=== PATIENT | male | born 1940 | race Caucasian/White ===

== ENCOUNTER → 2017-10-21 | Outpatient (CLI) | payer MEDICARE ==
[~2017-10-21] MED LIST: ALPR.25; ALPR.25 PO; ASCO500 PO; ASPI325; ASPI325EC PO; ASPI81EC PO; ATOR10; BACPOLTO30 TOP; BUME1 PO; BUME2 PO; BUMEX PO; CARV6.25 PO; CITA20 PO; CLOP75 PO; CYAN1000 PO; DIGO.125; DIGO.25; DIGO.25 PO; DILT60; DIPATR PO; ESCI10 PO; EZET10 PO; FERR325 PO; FLUO.05TO; FLUO.05TO TOP; FLUO60T TOP; FLUV80CR PO; GLIM2 PO; HYDACE5; HYDACE5 PO; IBUP600 PO; Keflex500 MG PO; LANS30EC PO; LATA.005SO BOTHEYES; LEVO750; LISI5; LISI5 PO; LIVALO PO; MAGCHL64ER PO; METF500 PO; METO25ER; METO50; METO50 PO; Micro-K10 MEQ PO; NAPR500 PO; NITR.4SL SL; NITR.6SL SL; Norco 5-325 Ta1 EACH PO; OMEP20ER; POTASSIUM PO; POTCHL10ER PO; TAMS.4ER; TAMS.4ER PO; TOPROL; TRIA50; VALS80; WARF1; ZENPEP DR 5,001 EACH PO; Zofran Odt4 MG SL; [UNRECOGNIZED DRUG - REMARK] PO
== END ==
LOC: LAB SHORT 12:47 → LAB EV 12:47
DX: I87.2 Venous insufficiency (chronic) (peripheral) (principal)
CPT/HCPCS: 87070; 87075; 87077; 87147; 87186; 87205

== ENCOUNTER 2018-08-02 20:46 | Inpatient (IN) | payer MEDICARE ==
[~2018-08-02] VITALS: Ht 170.2 cm; Wt 93.4 kg
[~2018-08-02 20:46] MED LIST changes: -CEPACOL SORE T1 EACH MM; -HYDR-86 PO; -RISP.25 PO; -Xalatan2.5 ML BOTHEYES
[2018-08-02 23:35] LABS: Source, Urine Clean Catch
[2018-08-02 23:38] LABS: Appearance, Urine Clear (Clear); Bilirubin, Urine Neg (Neg); Blood, Urine Neg (Neg); Color, Urine Yellow (P-Yellow); Glucose Qualitative, Urine Neg (Neg); Ketones, Urine Neg (Neg); Leukocyte Esterase, Urine Neg (Neg); Nitrite, Urine Neg (Neg); Protein, Urine 1+ (Neg); Specific Gravity, Urine 1.015 (1.003-1.022); Urobilinogen, Urine NORM (Normal)
[2018-08-02 23:55] LABS: Influenza A Negative (NEGATIVE); Influenza B Negative (NEGATIVE)
[2018-08-03 00:46] LABS: BASOPHILS ABSOLUTE AUTO 0.02 K/mm3 (0.00-0.23); BASOPHILS PERCENT AUTO 0 % (0-2); EOSINOPHILS ABSOLUTE AUTO 0.05 K/mm3 (0.00-0.68); EOSINOPHILS PERCENT AUTO 1 % (0-6); Hematocrit 39.1 % (37.0-53.0); Hemoglobin 12.8 g/dL (13.5-17.5); IMMATURE GRAN ABSOLUTE AUTO 0.04 K/mm3 (0.00-0.10); IMMATURE GRAN PERCENT AUTO 0 % (0-1); LYMPHOCYTES ABSOLUTE AUTO 1.15 K/mm3 (0.84-5.20); LYMPHOCYTES PERCENT AUTO 11 % (21-46); MONOCYTES ABSOLUTE AUTO 1.56 K/mm3 (0.16-1.47); MONOCYTES PERCENT AUTO 15 % (4-13); Mean Corpuscular HGB 28.4 pg (26.0-34.0); Mean Corpuscular HGB Conc 32.7 g/dL (31.5-36.5); Mean Corpuscular Volume 87 fL (80-100); NEUTROPHILS ABSOLUTE AUTO 7.89 K/mm3 (1.96-9.15); NEUTROPHILS PERCENT AUTO 74 % (41-73); Platelet Count 94 K/mm3 (150-400); RDW Standard Deviation 44.8 fL (35.1-46.3); Red Blood Cell Count 4.51 M/mm3 (4.30-5.90); White Blood Cell Count 10.71 K/mm3 (4.00-11.30)
[2018-08-03 00:47] LABS: Mean Platelet Volume 13.9 fL (9.1-12.4)
[2018-08-03 00:57] LABS: Bun/Creatinine Ratio 27.8 (12.0-20.0); Calcium, Blood 8.4 mg/dL (8.5-10.1); Creatinine, Blood 3.06 mg/dL (0.60-1.20); Potassium, Blood 5.1 mmol/L (3.5-5.5)
[2018-08-03 01:11] LABS: Digoxin (Lanoxin) 1.11 ug/mL (0.80-2.00)
[2018-08-03 04:40] LABS: Adenovirus F 40/41 Not Detected (NOT DETECT); Astrovirus Not Detected (NOT DETECT); Campylobacter Sp Not Detected (NOT DETECT); Cryptosporidium Not Detected (NOT DETECT); Cyclospora Cayetanensis Not Detected (NOT DETECT); E. Coli O157 Not Detected (NOT DETECT); Entamoeba Histolytica Not Detected (NOT DETECT); Enteroaggregative E. coli-EAEC Not Detected (NOT DETECT); Enteropathogenic E. coli-EPEC Not Detected (NOT DETECT); Enterotoxigenic E. coli-ETEC Not Detected (NOT DETECT); Giardia Lamblia Not Detected (NOT DETECT); Norovirus GI/GII Detected (NOT DETECT); Plesiomonas Shigelloides Not Detected (NOT DETECT); Rotavirus A Not Detected (NOT DETECT); Salmonella Sp Not Detected (NOT DETECT); Sapovirus Not Detected (NOT DETECT); Shiga Toxin-prod E. coli-STEC Not Detected (NOT DETECT); Shigella/Enteroin E. coli-EIEC Not Detected (NOT DETECT); Vibrio Cholerae Not Detected (NOT DETECT); Vibrio Sp Not Detected (NOT DETECT); Yersinia Enterocolitica Not Detected (NOT DETECT)
--- NOTE | 2018-08-03 11:30 | NUR ---
PT ARRIVED TO PCU 11 VIA GURNEY REPORT OBTAINED FROM ED NURSE, PT ABLE TO STAND AND TRANSFER TO BED HIMSELF, STEADY ON HIS FEET, BUT WEAK, A/OX3, PLEASANT AND COOPERATIVE WITH CARE, FOLLOWS COMMANDS WELL, DENIES PAIN OR N/V AT THIS TIME, LUNGS ARE CLEAR DIM IN BASES, RESP EVEN AND UNLABORED, NO COUGH NOTED, HRIRR, TELE IN PLACE RUNNING AFIB PER MONITOR, SEE STRIP, 1+ EDEMA NOTED TO B/L LE, PPP+1, CAP REFILL < 3 SEC, VS STABLE, AFEBRILE, IV SITE TO RAC SITE IS CLEAR AND PATENT, BTX4, ABD FLAT SOFT NONTENDER, VOIDS WITHOUT DIFF, HAS AN ILEOSTOMY TO RIGHT ABD, SKIN C/W/D, B/L LE ARE DISCOLORED, CASTILLO PANIAGUA, CALL LIGHT IN REACH, ORIENTED TO ROOM LAYOUT AND CALL SYSTEM.
[2018-08-03] MEDS ORDERED: Xalatan2.5 ML BOTHEYES (11:39)
[2018-08-03] MEDS ORDERED: HYDR-86 PO (11:41)
[2018-08-03] MEDS ORDERED: RISP.25 PO (11:42)
--- NOTE | 2018-08-03 18:47 | NUR ---
PT UP VOIDING VIA URINAL FREQUENTLY, STATES HE'S HAD A HARD TIME VOIDING SINCE HIS SURGERY. NO OTHER CHANGES, STATES HE FEELS OK. CALL LIGHT IN REACH.
--- NOTE | 2018-08-03 21:08 | NUR ---
PM NOTE. ASSUMED CARE OF PT APROX 1900, PT IS A&O AND IND IN THE ROOM. PT WAS ADMITTED DUE TO ACUTE RENAL FAILURE, PT ALSO IS NORO VIRUS POSITIVE AND HAS HAD N/V FOR SEVERAL DAYS PRIOR TO BEING ADMITTED. TELE INTACT, AFIB AT 110, PT'S BP 136/69. 1+ EDEMA NOTED TO THE PT'S BLE. L/S CLEAR T/O. ABD IS MOD DISTENDED, FIRM AND TENDER TO PALP. PT COMPLAINS OF SEVERE N/V, PT HAS REFUSED TO USE THE EMISIS BAGS IN ORDER TO MEASURE AMOUNT. PT HAS BEEN VOIDING VERY FREQUENTLY AND VERY MINIMAL AMOUNTS 25MLS AT A TIME TO DRIBBLES, BLADDER SCAN WAS DONE, NO AMOUNT OF FLUID IN THE ABD WAS ABLE TO BE FOUND. CALL LIGHT IN REACH, BED IS LOCKED AND LOW WILL CONTINUE TO MONITOR.
--- NOTE | 2018-08-04 03:22 | NUR ---
PT UPDATE... THIS RN ENTERED THE PT'S ROOM, PT STATED THERE WERE "ANTS ON THE FLOOR IN THE BATHROOM." PT WAS IN THE BATHROOM THEN WENT DOWN ON THE FLOOR ON HIS HANDS AND KNEES, THIS RN ENTERED THE BATHROOM AND SAW NO ANTS OR BUGS ON THE GROUND, PT GOT UP SET AND SAID "HOW CAN YOU NOT SEE THEM! THEY ARE EVERYWHERE!" PT THEN TOOK HIS FINGER AND SMASHED IT ON THE GROUND, LOOKED AT THE TIP OF HIS FINGER LIKE SOMETHING WAS THERE AND STATED "SEE THERE IT IS!" AND THEN FLICKED HIS FINGER AT THE TOILET AND SAID "THERE, ITS GONE NOW." PT WAS UPSET WITH THIS RN WHEN IT WAS STATED TO THE PT THAT THERE WERE NO BUGS OR ANTS IN THE BATHROOM. PT CONTINUES TO VOID APROX EVERY 5-10 MINS VERY MINIMAL AMOUNTS AT A TIME, PT STATES THAT "IT HURTS MY BLADDER TOO MUCH TO LAY DOWN FOR TO LONG." PT SAT ON THE EDGE OF THE BED FOR 8 MINS AND WAS UNABLE TO VOID MORE THAN A FEW DRIBBLES. BLADDER SCAN SHOWS NO FLUID FOUND IN THE ABD AREA AT ALL.
[2018-08-04 04:13] LABS: Hematocrit 38.9 % (37.0-53.0); Hemoglobin 12.5 g/dL (13.5-17.5); Mean Corpuscular HGB 28.2 pg (26.0-34.0); Mean Corpuscular HGB Conc 32.1 g/dL (31.5-36.5); Mean Corpuscular Volume 88 fL (80-100); Platelet Count 101 K/mm3 (150-400); RDW Coefficient Variation 14.2 % (11.7-14.2); RDW Standard Deviation 45.3 fL (35.1-46.3); Red Blood Cell Count 4.44 M/mm3 (4.30-5.90); White Blood Cell Count 10.92 K/mm3 (4.00-11.30)
[2018-08-04 04:14] LABS: Mean Platelet Volume 14.2 fL (9.1-12.4)
[2018-08-04 04:35] LABS: Bun/Creatinine Ratio 39.5 (12.0-20.0); Calcium, Blood 8.7 mg/dL (8.5-10.1); Creatinine, Blood 1.57 mg/dL (0.60-1.20); Potassium, Blood 5.2 mmol/L (3.5-5.5)
--- NOTE | 2018-08-04 04:49 | NUR ---
PT UPDATE... BLADDER SCANNER BATTERY WAS LOW, BATTERY WAS CHANGED AND BLADDER SCAN WAS PERFORMED ON THIS PT. PVR WAS 768, PROVIDER WAS CALLED AND ORDERS FOR RENTERIA OBTAINED.
--- NOTE | 2018-08-04 06:40 | NUR ---
SHIFT SUMMARY. RENTERIA WAS PLACED DUE TO SEVERE URINARY RETENTION AND FREQUENCY WITH MINIMAL OUTPUT. PT WAS ABLE TO REST AFTER RENTERIA PLACEMENT. PT STILL IS SLIGHTLY CONFUSED BUT NOT HALLUCINATING LIKE BEFORE. BED ALARM IS ON DUE TO PT'S CONFUSION. PT'S VS HAVE BEEN STABLE T/O SHIFT, PT'S COMPLAINS OF PAIN HAVE STOPPED SINCE RENTERIA PLACEMENT. CALL LIGHT IN REACH, BED IS LOCKED AND LOW WITH BED ALARM ON. WILL CONTINUE TO MONITOR UNTIL REPORT IS GIVEN TO ONCOMING RN.
--- NOTE | 2018-08-04 08:00 | NUR ---
PT SITTING UP IN CHAIR STATES HE HAD A PRETTY GOOD NIGHT LAST NIGHT, DID RECIEVE A RENTERIA CATH HE WAS RETAINING, BLADDER SCAN SHOWED OVER 800 PER REPORT, PT A/OX3 PLEASANT AND COOPERATIVE WITH CARE, FOLLOWS COMMANDS WELL, LUNGS ARE CLEAR DIM IN BASES, RESP EVEN AND UNLABORED, NO COUGH NOTED, HRIRR TELE IS IN PLACE RUNNING SR PER MONITOR, SEE STRIP, 2+ EDEMA NOTED TO B/L LE, PPP+1, CAP REFILL <3SEC, VS STABLE, AFEBRILE, IV SITE IS CLEAR AND PATENT TO RAC, INFUSING NS AT 125MLS/HR, BTX4, ABD ROUND SOFT NONTENDER, ILEOSTOMY NOTED TO RIGHT SIDE OF ABD, RENTERIA CATH DRAINIG CLEAR YOU URINE, SKIN HAS DISCOLORED B/L ARCELIA NAVARRO, UP AD BALTA IN ROOM, PELA CALL LIGHT IN REACH.
--- NOTE | 2018-08-04 15:50 | NUR ---
PT WAS CHANGED TO MEDICAL STATUS, REPORT TO SARAH PARIS. WAS TAKEN TO MEDICAL VIA WHEELCHAIR WITH REAMING MACHINE TENDER IN ATTENDENCE, ALL BELONGINGS WITH PT.
--- NOTE | 2018-08-04 17:30 | NUR ---
SPOKE TO DR HARPER- PT HAS A DC RENTERIA ORDER, PER REPORT FROM SHADOW GRAPH WEIGHT OPERATORWELLINGTON CARRINGTON IT WAS PLACED FOR RETENTION, DR TOLD BY FAMILY IT WAS FOR FREQUENCY. SPOKE TO DR HARPER, JULIANO TO LEAVE RENTERIA START BLADDER TRAINING KRISTY MCGRATH RENTERIA IN THE MORNING, IF PT STILL UNABLE TO VOID MAY NEED TO GO HOME WITH ONE IN PLACE.
--- NOTE | 2018-08-04 18:30 | NUR ---
SHIFT MARQUISE- PT TRANSFERED FROM PCU TO MEDICAL FLOOR. PT HAS ILLIOSTOMY STATED HE MANAGES IT HIMSELF DOES NOT WANT STAFF TO DO IT. PT HAS A RENTERIA THAT WAS PLACED LAST NIGHT FOR RETENTION, ORDERED BLADDER TRAINING TO START TONIGHT AND DC RENTERIA TOMORROW MORNING. NO CURRENT C/O PAIN. SITTING UP IN THE CHAIR WITH THE CALL LIGHT IN REACH. PT ALERT AND ORIENTED SBA FOR TRANSFERS.
--- NOTE | 2018-08-04 23:36 | NUR ---
08/04/18 2330 ASSISTED TO BATHROOM TO EMPTY ILEOSTOMY BAG AND RENTERIA UNCLAMPED AND EMPTIED. ASSISTED TO BED BY TWO NURSES. AND ALL NEEDED POSESSIONS WITHIN REACH. NO C/O DISCOMFORT AT THIS TIME.
[2018-08-05 05:38] LABS: Anion Gap 4 mmol/L (6-16); Blood Urea Nitrogen 36 mg/dL (8-24); CO2, Blood 26 mmol/L (21-32); Calcium, Blood 8.6 mg/dL (8.5-10.1); Chloride, Blood 110 mmol/L (98-108); Glomerular Filtration Rate >60 (60-); Glucose, Blood 104 mg/dL (70-99); Potassium, Blood 4.6 mmol/L (3.5-5.5); Sodium, Blood 140 mmol/L (136-145)
--- NOTE | 2018-08-05 06:16 | NUR ---
08/05/18 0610 UNCLAMPED RENTERIA PER PT FEELING"FULL". RENTERIA HTFOSE=769 ML. ILEOSTOMY BAG EMPTIED WELL. MEDICATED FOR MILD HEADACHE PER AUG. VITALS STABLE AND SLEPT WELL.
--- NOTE | 2018-08-05 12:05 | NUR ---
CALLED DR NG- PT RENTERIA REMOVED AFTER BLADDER TRAINING T/O THE NIGHT. PT HAS ATTEMPTED TO VOID 3 TIMES BLADDER SCAN SHOWS 613ML AT THIS TIME, PLAN IS FOR PT TO DC HOME. WAITING FOR A CALL BACK.
--- NOTE | 2018-08-05 17:53 | NUR ---
PT UNABLE TO VOID ON HIS OWN- STRAIGHT CATH DONE AFTER BLADDER SCAN SHOWED 613ML 500ML OUT WITH STRAIGHT CATH. PT RECIEVED FLOMAX THIS AFTERNOON DR ORDERED ANOTHER DOSE FOR THIS EVENING. ATTEMPTING BLADDER TRAINING PT AMBULATING IN THE ROOM, NO C/O PAIN. IV INFILTRATED, NEW ORDER FOR NO IV ACCESS NEEDED, ORDER RECIEVED TO LA TELE. PT DISCHARGE HELD UNTIL TOMORROW IF PT IS ABLE TO VOID ON HIS OWN.
--- NOTE | 2018-08-05 18:00 | NUR ---
SHIFT SUMMARY- PT HAS STILL BEEN UNABLE TO VOID T/O THE DAY, SECOND DOSE OF FLOMAX ORDERED FOR BEDTIME TONIGHT. PLAN TO CONTINUE WITH DISCHARGE TOMORROW IF PT IS ABLE TO VOID ON HIS OWN. BLADDER SCAN PRN AND STRAIGHT CATH PRN ORDERED. PT ALERT AND ORIENTED AND INDEPENDENT IN THE ROOM. STAFF TO PERSUADE HIM TO ATTEMPT TO VOID AT REGULAR INTERVALS
--- NOTE | 2018-08-05 23:06 | NUR ---
08/05/182219 PT VOIDED 30 ML AT 2024. BLADDER SCAN AT 2100 = 331ML. VOIDED AGAIN [address] CATH = 480 ML AT 2209. PT STATES A HISTORY OF FREQUENT SMALL VOIDINGS.
--- NOTE | 2018-08-06 04:31 | NUR ---
08/06/18 0415 Voided 5 ml. BLADDER SCAN = 114 ML. ABDOMEN NOT DISTENDED. HOPING TO GO BACK TO SLEEP. VITALS STABLE.
[2018-08-06 06:12] LABS: Anion Gap 7 mmol/L (6-16); Blood Urea Nitrogen 25 mg/dL (8-24); Bun/Creatinine Ratio 26.9 (12.0-20.0); CO2, Blood 25 mmol/L (21-32); Calcium, Blood 8.3 mg/dL (8.5-10.1); Chloride, Blood 107 mmol/L (98-108); Creatinine, Blood 0.93 mg/dL (0.60-1.20); Glomerular Filtration Rate >60 (60-); Glucose, Blood 132 mg/dL (70-99); Potassium, Blood 4.4 mmol/L (3.5-5.5); Sodium, Blood 139 mmol/L (136-145)
--- NOTE | 2018-08-06 13:57 | NUR ---
HE HAS VOIDED 50 ML INCREMENTS. BLADDER SCAN SHOWED 747 MLS JUST BEFORE NOON. I ST CATHED HIM AT 1215 FOR 700 MLS. HE TOLERATED IT WELL. HE DOESN'T SOUND WILLING TO HAVE A RENTERIA OR TO ST CATH HIMSELF AT HOME. HE IS COUNTING ON THE FLOMAX TO SOLVE HIS RETENTION PROBLEM. HE HAS SCABS OLD AND NEW ON HIS BUTTOCKS AREA. HE SAYS THOSE COME AND GO. THEY HURT SOME. HIS ILEOSTOMY DRAINS GREEN WATERY OUTPUT. HE EMPTIES HIS BAG AND DENIES ANY PROBLEM WITH IT. HE IS IN CONTACT ISOLATION FOR NORO VIRUS FOUND IN THE STOOL. CBG'S STABLE. VSS.
--- NOTE | 2018-08-06 15:21 | NUR ---
HE HAS BEEN SITTING UP IN THE CHAIR THIS AFTERNOON AND HAS WASHED UP SOME IN THE BATHROOM. NO COMPLAINTS.
--- NOTE | 2018-08-06 18:28 | NUR ---
WILL BLADDER SCAN HIM AGAIN TO SEE IF HE NEEDS A SECOND ST CATH THIS SHIFT. HE HAS NO COMPLAINTS EXCEPT HE CAN'T VOID AND HE IS BORED. HIS JUST CALLED TO DAY SHE CANNOT DRIVE IN THIS WEATHER.
--- NOTE | 2018-08-06 19:27 | NUR ---
08/06/181919 Voided only 10 ml. Encouraged oral intake and to try to void again in an hour or so. Sitting up in chair.
--- NOTE | 2018-08-06 22:29 | NUR ---
08/06/18 2220 VOIDED ONLY 30 ML AND C/O LOWER ABDOMINAL AND BACK PAIN. BLADDER SCAN = [address] CATH = 680 ML CLEAR YOU URINE. PT STATES BACK/ABDOMEN DISCOMFORT "almost gone". TALKED WITH HIM ABOUT POSSIBLY NEEDING A RENTERIA CATH FOR HOME BUT STATES HE WOULD PREFER NOT TO HAVE ONE AT HOME.
--- NOTE | 2018-08-07 02:26 | NUR ---
08/07/18 0210 VOIDED 10 ML OF PINK URINE. ENCOURAGED ORAL INTAKE AND ASSURED PT THAT IT WAS PROBABLY FROM FREQUENT ST CATHS. ALSO C/O SLIGHT SORE THROAT. COLD DIET SODA GIVEN.
--- NOTE | 2018-08-07 03:48 | NUR ---
08/07/18 0340 PT UNABLE TO SLEEP AND HAS BEEN FRUSTRATED AND ANXIOUS THIS SHIFT ABOUT NOT BEING ABLE TO VOID ADEQUATELY AND NEEDING TO BE ST CATHED REGULARLY. ALSO C/O SORE THROAT. CREDIT COLLECTIONS ANALYSTSHAHZAD NOTIFIED OF [facility]. CALLED FOR MEDS. SEE MAR FOR MEDS GIVEN. WILL MONITOR.
--- NOTE | 2018-08-07 06:16 | NUR ---
08/07/18 0530 SEE PREVIOUS NOTES. SLEEPING WELL NOW IN CHAIR.
[2018-08-07] MEDS ORDERED: CEPACOL SORE T1 EACH MM (09:48)
--- NOTE | 2018-08-07 11:03 | NUR ---
DISCHARGE/HANDOFF NOTE RECEIVED HANDOFF FROM NURSE DIANE. PT HAD NO IV. EXPLAINED DISCHARGE INSTRUCTIONS. PROVIDED HARDCOPY AND VERBAL INSTRUCTIONS FOR DISCHARGE. PERSONAL POSSESSIONS BAGGED FOR PT. PT DRESSED IN PERSONAL CLOTHES. PT AWAITING RIDE. PT HAD NO FURTHER QUESTIONS
--- NOTE | 2018-08-07 11:52 | NUR ---
PT DISCHARGE PT DISCHARGED, TRANSPORTED VIA WHEELCHAIR W/ ASSISTANCE FROM PROCESS MACHINE OPERATOR. WNL.
== END 2018-08-07 11:50 | disposition home or self-care (01) | DRG 391 ==
LOC: ER 20:46 → ERHOLD 08-03 01:44 → PCU 08-03 10:13 → MEDS 08-04 15:25 → EDPENDDIS 08-05 10:30 → ENPENDDIS 08-05 10:30 → MEDS 08-06 21:36
PROVIDERS: Emergency Medicine; Hospitalist; Internal Medicine; ADMIT Family Medicine
DX: A08.11 Acute gastroenteropathy due to Norwalk agent (principal); N17.0 Acute kidney failure with tubular necrosis; E87.1 Hypo-osmolality and hyponatremia; N40.1 Benign prostatic hyperplasia with lower urinary tract symptoms; R33.8 Other retention of urine; Z93.2 Ileostomy status; E86.0 Dehydration; E11.9 Type 2 diabetes mellitus without complications; I48.91 Unspecified atrial fibrillation; D69.6 Thrombocytopenia, unspecified; I95.9 Hypotension, unspecified; E86.1 Hypovolemia; I10 Essential (primary) hypertension; I25.10 Atherosclerotic heart disease of native coronary artery without angina pectoris; M79.7 Fibromyalgia; Z88.5 Allergy status to narcotic agent; Z88.8 Allergy status to other drugs, medicaments and biological substances; Z79.84 Long term (current) use of oral hypoglycemic drugs; Z79.82 Long term (current) use of aspirin; Z79.899 Other long term (current) drug therapy; Z95.5 Presence of coronary angioplasty implant and graft
CPT/HCPCS: 36415; 51703; 74176; 80048; 80162; 82550; 82947; 83605; 85025; 85027; 87081; 87430; 87507; 87804; 96360; 97116; 97161; 99285-25; J1650; J1815; J2405; J2765; J3010; J7030

== ENCOUNTER → 2018-08-02 | Outpatient (CLI) | payer MEDICARE ==
[~2018-08-02] MED LIST changes: +Aspirin EC81 MG PO; +CEPACOL SORE T1 EACH MM; -CYAN1000 PO; +CYAN500 PO; +HYDR-86 PO; +LANOXIN250 MC1 PO; -METF500 PO; +METF500C PO; +RISP.25 PO; +Xalatan2.5 ML BOTHEYES
[2018-08-02 18:55] LABS: BASOPHILS ABSOLUTE AUTO 0.03 K/mm3 (0.00-0.23); BASOPHILS PERCENT AUTO 0 % (0-2); EOSINOPHILS ABSOLUTE AUTO 0.08 K/mm3 (0.00-0.68); EOSINOPHILS PERCENT AUTO 1 % (0-6); Hematocrit 41.9 % (37.0-53.0); Hemoglobin 13.7 g/dL (13.5-17.5); IMMATURE GRAN ABSOLUTE AUTO 0.03 K/mm3 (0.00-0.10); IMMATURE GRAN PERCENT AUTO 0 % (0-1); LYMPHOCYTES ABSOLUTE AUTO 1.77 K/mm3 (0.84-5.20); LYMPHOCYTES PERCENT AUTO 16 % (21-46); MONOCYTES ABSOLUTE AUTO 1.67 K/mm3 (0.16-1.47); MONOCYTES PERCENT AUTO 15 % (4-13); Mean Corpuscular HGB 28.2 pg (26.0-34.0); Mean Corpuscular HGB Conc 32.7 g/dL (31.5-36.5); Mean Corpuscular Volume 86 fL (80-100); NEUTROPHILS ABSOLUTE AUTO 7.32 K/mm3 (1.96-9.15); NEUTROPHILS PERCENT AUTO 67 % (41-73); Platelet Count 127 K/mm3 (150-400); RDW Standard Deviation 44.3 fL (35.1-46.3); Red Blood Cell Count 4.85 M/mm3 (4.30-5.90)
[2018-08-02 18:59] LABS: Mean Platelet Volume 14.7 fL (9.1-12.4)
[2018-08-02 19:14] LABS: Albumin, Blood 3.7 g/dL (3.4-5.0); Albumin/Globulin Ratio 0.7 (0.8-1.8); Bilirubin, Total 0.5 mg/dL (0.1-1.0); Bun/Creatinine Ratio 20.9 (12.0-20.0); Calcium, Blood 8.4 mg/dL (8.5-10.1); Creatinine, Blood 4.02 mg/dL (0.60-1.20); Globulin, Blood 5.6 g/dL (2.2-4.0); Potassium, Blood 5.3 mmol/L (3.5-5.5); Total Protein, Blood 9.3 g/dL (6.4-8.2)
== END ==
LOC: LAB 17:15 → LAB SHORT 17:15
PROVIDERS: Nurse Practitioner
DX: R19.7 Diarrhea, unspecified (principal)
CPT/HCPCS: 80053; 85025

== ENCOUNTER → 2018-08-08 | Outpatient (CLI) | payer MEDICARE ==
[~2018-08-08] MED LIST changes: +CEPACOL SORE T1 EACH MM; +HYDR-86 PO; +RISP.25 PO; +Xalatan2.5 ML BOTHEYES
[2018-08-08 13:42] LABS: Bun/Creatinine Ratio 17.4 (12.0-20.0); Calcium, Blood 8.7 mg/dL (8.5-10.1); Creatinine, Blood 1.38 mg/dL (0.60-1.20); Potassium, Blood 4.6 mmol/L (3.5-5.5)
== END | disposition home or self-care (01) ==
LOC: LAB SHORT 13:31 → LAB EV 13:31
PROVIDERS: Family Medicine
DX: R33.9 Retention of urine, unspecified (principal)
CPT/HCPCS: 80048

== ENCOUNTER 2018-10-13 12:08 | Inpatient (IN) | payer MEDICARE ==
[~2018-10-13] VITALS: Ht 170.2 cm; Wt 90.0 kg
[~2018-10-13 12:08] MED LIST changes: -LIVALO PO; +LIVALO1 MG PO
[2018-10-13] MEDS ORDERED: BUME2 PO (12:38)
[2018-10-13] MEDS ORDERED: AMIL5 PO (12:44)
[2018-10-13] MEDS ORDERED: Ferrous Sulfat325 M2 PO (12:46)
[2018-10-13] MEDS ORDERED: Magnesium27 MG PO (12:47)
[2018-10-13] MEDS ORDERED: Amaryl1 MG PO (12:49)
[2018-10-13 13:25] LABS: BASOPHILS ABSOLUTE AUTO 0.03 K/mm3 (0.00-0.23); BASOPHILS PERCENT AUTO 0 % (0-2); EOSINOPHILS ABSOLUTE AUTO 0.01 K/mm3 (0.00-0.68); EOSINOPHILS PERCENT AUTO 0 % (0-6); Hemoglobin 15.1 g/dL (13.5-17.5); IMMATURE GRAN ABSOLUTE AUTO 0.04 K/mm3 (0.00-0.10); IMMATURE GRAN PERCENT AUTO 0 % (0-1); LYMPHOCYTES ABSOLUTE AUTO 0.55 K/mm3 (0.84-5.20); LYMPHOCYTES PERCENT AUTO 4 % (21-46); MONOCYTES ABSOLUTE AUTO 0.88 K/mm3 (0.16-1.47); MONOCYTES PERCENT AUTO 7 % (4-13); Mean Corpuscular HGB 28.1 pg (26.0-34.0); Mean Corpuscular HGB Conc 31.5 g/dL (31.5-36.5); Mean Corpuscular Volume 89 fL (80-100); NEUTROPHILS ABSOLUTE AUTO 10.92 K/mm3 (1.96-9.15); NEUTROPHILS PERCENT AUTO 88 % (41-73); Platelet Count 150 K/mm3 (150-400); RDW Coefficient Variation 14.2 % (11.7-14.2); RDW Standard Deviation 45.9 fL (35.1-46.3); Red Blood Cell Count 5.38 M/mm3 (4.30-5.90); White Blood Cell Count 12.43 K/mm3 (4.00-11.30)
[2018-10-13 13:27] LABS: Troponin I <0.015 ng/mL (0.000-0.040)
[2018-10-13 13:32] LABS: Mean Platelet Volume 14.3 fL (9.1-12.4)
[2018-10-13 13:43] LABS: Alanine Aminotransfer (ALT/SGP 43 U/L (12-78); Albumin, Blood 4.5 g/dL (3.4-5.0); Albumin/Globulin Ratio 0.7 (0.8-1.8); Alk Phos 35 U/L (50-136); Anion Gap 11 mmol/L (6-16); Aspartate Aminotrans (AST/SGOT 34 U/L (12-37); Bilirubin, Total 0.6 mg/dL (0.1-1.0); Blood Urea Nitrogen 48 mg/dL (8-24); Bun/Creatinine Ratio 14.5 (12.0-20.0); CO2, Blood 21 mmol/L (21-32); Calcium, Blood 9.5 mg/dL (8.5-10.1); Chloride, Blood 98 mmol/L (98-108); Creatinine, Blood 3.31 mg/dL (0.60-1.20); Globulin, Blood 6.8 g/dL (2.2-4.0); Glomerular Filtration Rate 19 (60-); Glucose, Blood 227 mg/dL (70-99); Sodium, Blood 130 mmol/L (136-145); Total Protein, Blood 11.3 g/dL (6.4-8.2)
[2018-10-13 16:03] LABS: Source, Urine Voided
[2018-10-13 16:07] LABS: Bilirubin, Urine Neg (Neg); Blood, Urine Neg (Neg); Glucose Qualitative, Urine Neg (Neg); Ketones, Urine Neg (Neg); Leukocyte Esterase, Urine Neg (Neg); Nitrite, Urine Neg (Neg); Protein, Urine 2+ (Neg); Specific Gravity, Urine 1.025 (1.003-1.022); Urobilinogen, Urine NORM (Normal)
[2018-10-13 16:28] LABS: Appearance, Urine Clear (Clear); Color, Urine Amber (P-Yellow)
[2018-10-13 16:31] LABS: Amorphous Light (0-Heavy); Bacteria Not Seen /hpf; Mucus Light (0-Heavy); Red Blood Cells, Urine Rare /hpf (0-2); Squamous Epithelial Cells Few /hpf (Few); White Blood Cells, Urine 0-2 /hpf (0-5)
[2018-10-13 16:37] LABS: Thyroid Stimulating Hormone 3.28 uIU/mL (0.360-4.800)
[2018-10-13 16:43] LABS: Potassium, Blood 6.1 mmol/L (3.5-5.5)
--- NOTE | 2018-10-13 19:11 | NUR ---
SHIFT SUMMARY PATIENT BROUGHT TO THE FLOOR 1730. CRITICAL HIGH LACTIC REPORTED TO DR. HARPER SHE AHS ORDERED 2L FLUID BOLUS TO RUN AT 200ML/HR. WILL ASSESS FOR CHANGES. PATIENT HAS ILEOSTOMY AND AWAITING A STOOL SAMPLE. PATIENT IS WEAK, AWAITING PATIENTS CURRENT POTASSIUM LEVEL. HE REPORTS NAUSEA AND FEELS LIKE VOMITING. NO ACUTE CONCERNS FROM PATIENT AT THIS TIME. HE IS RESTING COMFORTABLY. BEDSIDE REPORT GIVEN TO ALEXANDRU BAIRD RN.
[2018-10-13 22:28] LABS: Bun/Creatinine Ratio 14.6 (12.0-20.0); Calcium, Blood 9.2 mg/dL (8.5-10.1); Creatinine, Blood 3.77 mg/dL (0.60-1.20); Potassium, Blood 4.9 mmol/L (3.5-5.5)
[2018-10-13 23:46] LABS: Adenovirus F 40/41 Not Detected (NOT DETECT); Astrovirus Not Detected (NOT DETECT); Campylobacter Sp Not Detected (NOT DETECT); Cryptosporidium Not Detected (NOT DETECT); Cyclospora Cayetanensis Not Detected (NOT DETECT); E. Coli O157 Not Detected (NOT DETECT); Entamoeba Histolytica Not Detected (NOT DETECT); Enteroaggregative E. coli-EAEC Not Detected (NOT DETECT); Enteropathogenic E. coli-EPEC Not Detected (NOT DETECT); Enterotoxigenic E. coli-ETEC Not Detected (NOT DETECT); Giardia Lamblia Not Detected (NOT DETECT); Norovirus GI/GII Not Detected (NOT DETECT); Plesiomonas Shigelloides Not Detected (NOT DETECT); Rotavirus A Detected (NOT DETECT); Salmonella Sp Not Detected (NOT DETECT); Sapovirus Not Detected (NOT DETECT); Shiga Toxin-prod E. coli-STEC Not Detected (NOT DETECT); Shigella/Enteroin E. coli-EIEC Not Detected (NOT DETECT); Vibrio Cholerae Not Detected (NOT DETECT); Vibrio Sp Not Detected (NOT DETECT); Yersinia Enterocolitica Not Detected (NOT DETECT)
[2018-10-14 05:05] LABS: Hematocrit 42.4 % (37.0-53.0); Hemoglobin 13.4 g/dL (13.5-17.5); Mean Corpuscular HGB 28.1 pg (26.0-34.0); Mean Corpuscular HGB Conc 31.6 g/dL (31.5-36.5); Mean Corpuscular Volume 89 fL (80-100); Platelet Count 99 K/mm3 (150-400); RDW Coefficient Variation 14.3 % (11.7-14.2); RDW Standard Deviation 45.7 fL (35.1-46.3); Red Blood Cell Count 4.77 M/mm3 (4.30-5.90); White Blood Cell Count 10.26 K/mm3 (4.00-11.30)
[2018-10-14 05:22] LABS: Mean Platelet Volume 13.8 fL (9.1-12.4)
[2018-10-14 05:24] LABS: Albumin, Blood 3.7 g/dL (3.4-5.0); Albumin/Globulin Ratio 0.6 (0.8-1.8); Bilirubin, Total 0.4 mg/dL (0.1-1.0); Bun/Creatinine Ratio 17.5 (12.0-20.0); Calcium, Blood 8.6 mg/dL (8.5-10.1); Creatinine, Blood 3.25 mg/dL (0.60-1.20); Globulin, Blood 5.7 g/dL (2.2-4.0); Potassium, Blood 5.1 mmol/L (3.5-5.5); Total Protein, Blood 9.4 g/dL (6.4-8.2)
[2018-10-14 05:41] LABS: BAND PERCENT MAN 9 % (0-8); BASOPHILS PERCENT MAN 0 % (0-2); EOSINOPHILS PERCENT MAN 1 % (0-6); LYMPHOCYTES ABSOLUTE MAN 0.61 K/mm3 (0.84-5.20); LYMPHOCYTES PERCENT MAN 6 % (21-46); MONOCYTES ABSOLUTE MAN 0.92 K/mm3 (0.16-1.47); MONOCYTES PERCENT MAN 9 % (4-13); NEUTROPHILS ABSOLUTE MAN 8.61 K/mm3 (1.96-9.15); SEG NEUTROPHILS PERCENT MAN 75 % (41-73); TOTAL CELLS COUNTED 100
--- NOTE | 2018-10-14 06:15 | NUR ---
SHIFT SUMMARY PT A/O. C/O PAIN IN HEAD AND MEDICATED PER EMAR. LACTIC ACID 2.[address] HARPER SHE ORDERED THE RATE OF THE LITER OF FLUID TO BE INCREASED TO GO IN OVER 2 HOURS AND THEN INCREASE THE RATE OF THE LITERS LEFT TO BE 200ML/HR FROM 150ML/HR. HIS ILIOSTOMY HAS BEEN DRAINING LARGE AMOUNTS OF GREEN LIQUID CONSTANTLY T/O NOC. DR HARPER WANTED RENTERIA PUT IN FOR BPH AND I/O'S. RENTERIA DRAINING DARK YELLOW URINE BUT ILIOSTOMY OUTPUT HAS BEEN MORE THAN THE URINE OUTPUT. HE WAS ABLE TO SLEEP T/O NOC. SBA TO BSC TO HELP ASSIST C OSTOMY BAG EMPTYING. CALL LIGHT IN REACH.
--- NOTE | 2018-10-14 18:38 | NUR ---
SHIFT SUMMARY PATIENT REMAINS AXO AND IN NO DISTRESS. HE HAS BEEN CHANGING HIS OSTOMY 2-3 TIMES DAILY DUE TO LARGE QUANTITIES OF FECES. HE IS INDEPENDENT IN CHANGING HIS DEVICE. HIS IS BY HIS SIDE.
--- NOTE | 2018-10-14 18:47 | NUR ---
SHIFT SUMMARY PATIENT IS PLEASANT. ALERT AND ORIENTED. NO ACUTE CONCERNS FROM THE PATIENT AT THIS TIME. HE IS STILL PRODUCING MASS AMOUNTS OF DIARRHEA FROM HIS OSTOMY AT THIS TIME AND HAS BEEN CHANGED REGULARLY. HE DOES MOST OF THE CHANGES AND WE HAVE EXPLAINED TO HIM HOW TO EMPTY THE BAG BUT DO NOT DUMP IT WITHOUT OUR KNOWLEDGE. IT IS STARTING TO FIRM UP MODERATELY ALTHOUGH STILL A LOT. HE IS CURRENTLY FOCUSED ON URINE OUTPUT WHICH HE HAS STARTED TO PRODUCE TONIGHT.
--- NOTE | 2018-10-14 19:26 | NUR ---
ASSESSMENT PATIENT HAS SMALL SORE/REDNESS IN HIS SACRAL AREA. MEPILEX HAS BEEN APPLIED
[2018-10-15 05:38] LABS: BASOPHILS ABSOLUTE AUTO 0.01 K/mm3 (0.00-0.23); BASOPHILS PERCENT AUTO 0 % (0-2); EOSINOPHILS ABSOLUTE AUTO 0.01 K/mm3 (0.00-0.68); EOSINOPHILS PERCENT AUTO 0 % (0-6); Hematocrit 39.2 % (37.0-53.0); Hemoglobin 12.3 g/dL (13.5-17.5); IMMATURE GRAN ABSOLUTE AUTO 0.02 K/mm3 (0.00-0.10); IMMATURE GRAN PERCENT AUTO 0 % (0-1); LYMPHOCYTES ABSOLUTE AUTO 0.93 K/mm3 (0.84-5.20); LYMPHOCYTES PERCENT AUTO 13 % (21-46); MONOCYTES ABSOLUTE AUTO 1.07 K/mm3 (0.16-1.47); MONOCYTES PERCENT AUTO 15 % (4-13); Mean Corpuscular HGB 27.9 pg (26.0-34.0); Mean Corpuscular HGB Conc 31.4 g/dL (31.5-36.5); Mean Corpuscular Volume 89 fL (80-100); NEUTROPHILS ABSOLUTE AUTO 5.15 K/mm3 (1.96-9.15); NEUTROPHILS PERCENT AUTO 72 % (41-73); Platelet Count 101 K/mm3 (150-400); RDW Coefficient Variation 14.8 % (11.7-14.2); RDW Standard Deviation 48.2 fL (35.1-46.3); Red Blood Cell Count 4.41 M/mm3 (4.30-5.90); White Blood Cell Count 7.19 K/mm3 (4.00-11.30)
[2018-10-15 05:39] LABS: Mean Platelet Volume 13.6 fL (9.1-12.4)
[2018-10-15 06:02] LABS: Albumin, Blood 3.4 g/dL (3.4-5.0); Albumin/Globulin Ratio 0.7 (0.8-1.8); Bilirubin, Total 0.5 mg/dL (0.1-1.0); Bun/Creatinine Ratio 31.9 (12.0-20.0); Calcium, Blood 8.5 mg/dL (8.5-10.1); Creatinine, Blood 1.66 mg/dL (0.60-1.20); Globulin, Blood 5.1 g/dL (2.2-4.0); Magnesium, Blood 1.9 mg/dL (1.6-2.4); Potassium, Blood 4.8 mmol/L (3.5-5.5); Total Protein, Blood 8.5 g/dL (6.4-8.2)
--- NOTE | 2018-10-15 06:10 | NUR ---
SHIFT SUMMARY PT A/O. NO C/O PAIN. TELE SHOWED A FIB @ 104 AT 2130 THEN ELECTRONICS ENGINEERING MANAGER NOTIFIED THAT A FIB WAS AVERAGING INTO THE 120'S AT APPROX 0045. HE GOT THE SCHEDULED PO METOPROLOL AND THEN TELE SAID HR CAME BACK DOWN TO 104. RENTERIA DRAINING AND ILIOSTOMY DRAINING. OSTOMY STILL HAVING LARGE AMOUNTS OF OUTPUT. STOOL FROM OSTOMY IS THICKER THAN PREVIOUS NIGHT LIQUID. HE WANTED TO SIT IN CHAIR AT BEDSIDE ALL NIGHT, REFUSED RECLINER. SLEPT IN CHAIR ALL NIGHT. CALL LIGHT IN REACH.
--- NOTE | 2018-10-15 15:56 | NUR ---
Initial Spiritual Care visit: Humphrey tells me he hopes to go home tomorrow. He was pleasantly dismissive of prayer and spiritual support. I will remain available.
--- NOTE | 2018-10-15 16:19 | NUR ---
Initial Visit: Palliative Care Consult for Advanced Care Planning and Symptom Management. Pt is A&O and denies pain at this time. Pt also denies nausea, dyspnea, and anxiety. Engaged in therapeutic conversation regarding advanced care planning. Pt reports he is of [place] and lives at home with his of 46 years. Pt reports independence of his ADL's. Discussed the importanced of planning ahead as his chronic illness takes it's coarse. Also discussed the importance of having routine discussion with his PCP in order to plan accordingly. V/U made by Pt. Pt reports that he has this discussion with his on occasion. Discussed AD/POLST with Pt and he reports Dr Clifford has a copy. Received verbal permission from Pt to call Dr Clifford's offic and obtain copy of AD/POLST. Pt reports no concerns at this time. Spoke with Pt's bedside nurse Jazlyn and she reports no concerns at this time. Plan: Called Dr Clifford's office and they will fax copy of POLST/AD. Once received will fax copy to medical records. Palliative Care will remain available.
--- NOTE | 2018-10-15 17:53 | NUR ---
Pt visit this afternoon to confirm POLST received from Dr Clifford. Pt confirms current wishes are the same. POLST and Pt's wishes are DNR, Limited Treatment, and No Tube Feeding. Called Dr Britton and reported POLST and Pt's wishes of DNR. Placed new code staus as DNR per V/O from Dr Britton. Called and reported code status change to Pt's bedside nurse Jazlyn. Faxed copy of POLST and Advanced Directive to medical records.
--- NOTE | 2018-10-15 18:20 | NUR ---
SHIFT SUMMARY PT UP IN CHAIR MOST OF DAY. WOULD STAND UP WHEN HE NEEDED TO EMPTY HIS ILIOSTOMY WHICH HAD LIQUID STOOL FREQUENTLY. RENTERIA REMOVED THIS AFTERNOON AND HAS VOIDED SINCE THEN. AT BEDSIDE ON AND OFF. PT STATES HE FEELS PRETTY GOOD.
[2018-10-16 04:56] LABS: BASOPHILS ABSOLUTE AUTO 0.02 K/mm3 (0.00-0.23); BASOPHILS PERCENT AUTO 0 % (0-2); EOSINOPHILS ABSOLUTE AUTO 0.03 K/mm3 (0.00-0.68); EOSINOPHILS PERCENT AUTO 0 % (0-6); Hematocrit 42.6 % (37.0-53.0); Hemoglobin 13.2 g/dL (13.5-17.5); IMMATURE GRAN ABSOLUTE AUTO 0.01 K/mm3 (0.00-0.10); IMMATURE GRAN PERCENT AUTO 0 % (0-1); LYMPHOCYTES ABSOLUTE AUTO 1.13 K/mm3 (0.84-5.20); LYMPHOCYTES PERCENT AUTO 17 % (21-46); MONOCYTES ABSOLUTE AUTO 0.95 K/mm3 (0.16-1.47); MONOCYTES PERCENT AUTO 14 % (4-13); Mean Corpuscular HGB 27.8 pg (26.0-34.0); Mean Corpuscular Volume 90 fL (80-100); Mean Platelet Volume 12.8 fL (9.1-12.4); NEUTROPHILS ABSOLUTE AUTO 4.65 K/mm3 (1.96-9.15); NEUTROPHILS PERCENT AUTO 69 % (41-73); Platelet Count 122 K/mm3 (150-400); RDW Coefficient Variation 14.8 % (11.7-14.2); Red Blood Cell Count 4.74 M/mm3 (4.30-5.90); White Blood Cell Count 6.79 K/mm3 (4.00-11.30)
[2018-10-16 05:22] LABS: Bun/Creatinine Ratio 37.4 (12.0-20.0); Calcium, Blood 9.3 mg/dL (8.5-10.1); Creatinine, Blood 1.31 mg/dL (0.60-1.20); Potassium, Blood 4.9 mmol/L (3.5-5.5)
--- NOTE | 2018-10-16 05:43 | NUR ---
SHIFT SUMMARY PT HAS SLEPT POORLY DURING THE NIGHT, SITS UP IN CHAIR TO SLEEP. STATES THAT'S WHAT HE DOES AT HOME. TYLENOL GIVEN PER REQUEST FOR FOOT PAIN. PT TAKES CARE OF OWN ILEOSTOMY AND STAFF EMPTIES OUT URINAL WHEN NEEDED. NO ACUTE EVENTS NOTED DURING THE NIGHT. WILL CONTINUE TO MONITOR.
--- NOTE | 2018-10-16 19:59 | NUR ---
HE RECEIVED A LITER BAG OF SODIUM BICARB IN 12 NS TODAY. POSSIBLE DC HOME TOMORROW. HE HAS SAT IN THE CHAIR MOST OF THE DAY. PAS STOCKINGS ON. HE PUT HIS LEGS UP FOR A SHORT TIME THIS AFTERNOON. HIS VISITED FOR A FES HRS. THEY P[LAYED CARDS PART OF THE TIME.CBG'S STABLE. VSS. CONTACT ISOLATION STILL IN PLACE.
--- NOTE | 2018-10-17 05:49 | NUR ---
SHIFT SUMMARY PT SLEPT WELL DURING THE NIGHT. MIDNIGHT DOSE LOPRESSOR HELD DUE TO B/P 100/63. HEART RATE BELOW 100 AT 80. NO ACUTE EVENTS NOTED DURING THE NIGHT, WILL CONTINUE TO MONITOR.
[2018-10-17 08:52] LABS: Anion Gap 4 mmol/L (6-16); Blood Urea Nitrogen 40 mg/dL (8-24); Bun/Creatinine Ratio 37.4 (12.0-20.0); CO2, Blood 21 mmol/L (21-32); Calcium, Blood 9.3 mg/dL (8.5-10.1); Chloride, Blood 107 mmol/L (98-108); Creatinine, Blood 1.07 mg/dL (0.60-1.20); Glomerular Filtration Rate >60 (60-); Glucose, Blood 151 mg/dL (70-99); Potassium, Blood 4.6 mmol/L (3.5-5.5); Sodium, Blood 132 mmol/L (136-145)
--- NOTE | 2018-10-17 14:34 | NUR ---
DISCHARGE SUMMARY PATIENT A&O X4. DENIES ANY PAIN, SOB, OR NAUSEA THIS SHIFT. CBG ACHS. UP IN CHAIR FOR SHIFT. PATIENT MANAGING ILEOSTOMY HIMSELF. AT THE BEDSIDE. ALL DISCHAGRE INSTRUCTIONS REVIEWED WITH THE PATIENT AND HIS . MEDICATIONS FAXED TO [facility]. FOLLOW UP APPOINTMENT WITH PCP ALREADY SCHEDULED PER PATIENT/. PATIENT EDUCATION PROVIDED. IV D/C, WNL. DEICER FINISHER ESCORTED PATIENT BY WHEELCHAIR, ALL BELONGINGS IN HAND.
== END 2018-10-17 12:40 | disposition home or self-care (01) | DRG 872 ==
LOC: ER 12:08 → MEDS 15:50 → ENPENDDIS 10-17 10:23 → MEDS 10-17 12:40
PROVIDERS: Emergency Medicine; Hospitalist; ADMIT Internal Medicine
DX: A41.9 Sepsis, unspecified organism (principal); N17.9 Acute kidney failure, unspecified; E87.2 Acidosis; E87.1 Hypo-osmolality and hyponatremia; A08.0 Rotaviral enteritis; E83.42 Hypomagnesemia; R65.20 Severe sepsis without septic shock; N40.1 Benign prostatic hyperplasia with lower urinary tract symptoms; R33.9 Retention of urine, unspecified; E87.5 Hyperkalemia; E11.9 Type 2 diabetes mellitus without complications; I25.10 Atherosclerotic heart disease of native coronary artery without angina pectoris; Z95.5 Presence of coronary angioplasty implant and graft; H40.9 Unspecified glaucoma; K21.9 Gastro-esophageal reflux disease without esophagitis; F32.9 Major depressive disorder, single episode, unspecified; Z79.82 Long term (current) use of aspirin; Z79.84 Long term (current) use of oral hypoglycemic drugs; E86.0 Dehydration; Z93.2 Ileostomy status; Z89.612 Acquired absence of left leg above knee
CPT/HCPCS: 36415; 51798; 71045; 80048; 80053; 81001; 82947; 83605; 83735; 84132; 84145; 84443; 84484; 85025; 87507; 93005; 93010; 96361; 96365; 96375; 99285-25; J1644; J2405; J3475; J7030

== ENCOUNTER 2018-12-12 06:22 | Day surgery (SDC) | payer MEDICARE ==
[~2018-12-12] VITALS: Ht 170.2 cm; Wt 214.2 kg
[~2018-12-12 06:22] MED LIST changes: +AMIL5 PO; +Amaryl1 MG PO; +Ferrous Sulfat325 M2 PO; +Magnesium27 MG PO
== END 2018-12-12 08:10 | disposition home or self-care (01) ==
LOC: ORSCSDS 06:22
PROVIDERS: Ophthalmology
PROC: 08RJ3JZ Replacement of Right Lens with Synthetic Substitute, Percutaneous Approach (ICD-10-PCS; principal; 2018-12-12 07:30)
DX: H25.11 Age-related nuclear cataract, right eye (principal); H21.81 Floppy iris syndrome; E11.36 Type 2 diabetes mellitus with diabetic cataract; I48.91 Unspecified atrial fibrillation; I10 Essential (primary) hypertension; Z79.82 Long term (current) use of aspirin; Z79.84 Long term (current) use of oral hypoglycemic drugs; Z79.899 Other long term (current) drug therapy
CPT/HCPCS: 82947; J2001; J2250; J3301; J7040; J7120; V2632

== ENCOUNTER → 2020-03-18 | Outpatient (CLI) | payer MEDICARE | LOC: LAB SHORT 14:46 → LAB 14:46 | DX: L08.9 Local infection of the skin and subcutaneous tissue, unspecified (principal) | CPT/HCPCS: 87070; 87077; 87147; 87186; 87205 ==

== ENCOUNTER 2021-02-17 09:22 | Inpatient (IN) | payer MEDICARE ==
[~2021-02-17] VITALS: Ht 170.2 cm; Wt 97.1 kg
[~2021-02-17 09:22] MED LIST changes: -Amaryl1 MG PO; +FERSU300 PO; -Ferrous Sulfat325 M2 PO
[2021-02-17 10:39] LABS: BASOPHILS ABSOLUTE AUTO 0.03 K/mm3 (0.00-0.23); BASOPHILS PERCENT AUTO 0 % (0-2); EOSINOPHILS ABSOLUTE AUTO 0.06 K/mm3 (0.00-0.68); EOSINOPHILS PERCENT AUTO 1 % (0-6); Hematocrit 38.3 % (37.0-53.0); Hemoglobin 12.1 g/dL (13.5-17.5); IMMATURE GRAN ABSOLUTE AUTO 0.06 K/mm3 (0.00-0.10); IMMATURE GRAN PERCENT AUTO 1 % (0-1); LYMPHOCYTES PERCENT AUTO 8 % (21-46); MONOCYTES ABSOLUTE AUTO 0.73 K/mm3 (0.16-1.47); MONOCYTES PERCENT AUTO 7 % (4-13); Mean Corpuscular HGB 27.9 pg (26.0-34.0); Mean Corpuscular HGB Conc 31.6 g/dL (31.5-36.5); Mean Corpuscular Volume 89 fL (80-100); Mean Platelet Volume 12.6 fL (9.1-12.4); NEUTROPHILS ABSOLUTE AUTO 8.78 K/mm3 (1.96-9.15); NEUTROPHILS PERCENT AUTO 84 % (41-73); Platelet Count 128 K/mm3 (150-400); RDW Coefficient Variation 14.7 % (11.7-14.2); Red Blood Cell Count 4.33 M/mm3 (4.30-5.90); White Blood Cell Count 10.46 K/mm3 (4.00-11.30)
[2021-02-17 10:42] LABS: Source, Urine Clean Catch
[2021-02-17 10:50] LABS: Appearance, Urine Clear (Clear); Bilirubin, Urine Neg (Neg); Blood, Urine 1+ (Neg); Color, Urine Yellow (P-Yellow); Glucose Qualitative, Urine 3+ (Neg); Ketones, Urine Neg (Neg); Leukocyte Esterase, Urine 1+ (Neg); Nitrite, Urine Neg (Neg); Protein, Urine Neg (Neg); Specific Gravity, Urine 1.015 (1.003-1.022); Urobilinogen, Urine NORM (Normal)
[2021-02-17 10:56] LABS: Albumin, Blood 3.5 g/dL (3.4-5.0); Albumin/Globulin Ratio 0.6 (0.8-1.8); Bilirubin, Total 0.6 mg/dL (0.1-1.0); Bun/Creatinine Ratio 25.2 (12.0-20.0); Calcium, Blood 9.5 mg/dL (8.5-10.1); Creatinine, Blood 1.59 mg/dL (0.60-1.20); Globulin, Blood 5.7 g/dL (2.2-4.0); Potassium, Blood 4.6 mmol/L (3.5-5.5); Total Protein, Blood 9.2 g/dL (6.4-8.2)
[2021-02-17 11:23] LABS: Squamous Epithelial Cells Few /hpf (Few)
[2021-02-17 11:24] LABS: Bacteria Few /hpf
[2021-02-17 11:25] LABS: Digoxin (Lanoxin) 0.11 ug/mL (0.80-2.00)
[2021-02-17] MEDS ORDERED: CARVEDILOL6.25 MG PO (12:14)
[2021-02-17] MEDS ORDERED: VIT1CAPS12 ×2 (12:18→12:19)
[2021-02-17] MEDS ORDERED: VIT1CAPS12 PO (12:20)
[2021-02-17 20:46] LABS: SARS-Cov-2 (COVID-19) PCR, MMC POSITIVE (NEGATIVE)
--- NOTE | 2021-02-18 04:42 | NUR ---
SHIFT SUMMARY PT IS A DNR ADMITTED FOR URINARY RETENTION. PT HAS A RENTERIA IN PLACE AND DRAINING TO GRAVITY. PT ON TELEMETRY IN AFIB RATE RANGES FROM 100-114 THROUGHOUT SHIFT. DENIES PAIN, CALL LIGHT WITHIN REACH. NO DISTRESS DURING THIS SHIFT. BED LOW, ALARM ON.
[2021-02-18 05:47] LABS: BASOPHILS ABSOLUTE AUTO 0.03 K/mm3 (0.00-0.23); BASOPHILS PERCENT AUTO 0 % (0-2); EOSINOPHILS ABSOLUTE AUTO 0.29 K/mm3 (0.00-0.68); EOSINOPHILS PERCENT AUTO 4 % (0-6); Hematocrit 34.4 % (37.0-53.0); Hemoglobin 10.7 g/dL (13.5-17.5); IMMATURE GRAN ABSOLUTE AUTO 0.01 K/mm3 (0.00-0.10); IMMATURE GRAN PERCENT AUTO 0 % (0-1); LYMPHOCYTES ABSOLUTE AUTO 0.97 K/mm3 (0.84-5.20); LYMPHOCYTES PERCENT AUTO 13 % (21-46); MONOCYTES ABSOLUTE AUTO 0.86 K/mm3 (0.16-1.47); MONOCYTES PERCENT AUTO 11 % (4-13); Mean Corpuscular HGB 27.4 pg (26.0-34.0); Mean Corpuscular HGB Conc 31.1 g/dL (31.5-36.5); Mean Corpuscular Volume 88 fL (80-100); NEUTROPHILS ABSOLUTE AUTO 5.47 K/mm3 (1.96-9.15); NEUTROPHILS PERCENT AUTO 72 % (41-73); Platelet Count 108 K/mm3 (150-400); RDW Coefficient Variation 14.9 % (11.7-14.2); RDW Standard Deviation 48.1 fL (35.1-46.3); White Blood Cell Count 7.63 K/mm3 (4.00-11.30)
[2021-02-18 05:51] LABS: Mean Platelet Volume 13.7 fL (9.1-12.4)
[2021-02-18 06:34] LABS: Albumin/Globulin Ratio 0.6 (0.8-1.8); Bilirubin, Total 0.7 mg/dL (0.1-1.0); Bun/Creatinine Ratio 23.4 (12.0-20.0); Calcium, Blood 8.9 mg/dL (8.5-10.1); Creatinine, Blood 1.45 mg/dL (0.60-1.20); Globulin, Blood 5.1 g/dL (2.2-4.0); Potassium, Blood 3.9 mmol/L (3.5-5.5); Total Protein, Blood 8.1 g/dL (6.4-8.2)
--- NOTE | 2021-02-18 12:42 | NUR ---
Echocardiogram completed.
--- NOTE | 2021-02-18 19:20 | NUR ---
SHIFT SUMMARY: NO ACUTE CHANGES TO REPORT THIS SHIFT. PT A&O; CALM AND COOPERATIVE WITH CARE. NO C/O PAIN THIS SHIFT. O2 CONTINUES @ 2L. TELE IN PLACE; AFIB IN 100s. RENTERIA IN PLACE FOR RETENTION; PATENT & DRAINING; DIURESIS CONTINUING. REPORT GIVEN TO ONCOMING RN.
--- NOTE | 2021-02-19 04:18 | NUR ---
SHIFT SUMMARY PT ADMITTED FOR URINARY RETENTION AND POSITIVE FOR COVID 19+. PT DENIES ANY RESPIRATORY PROBLEMS, ON 2L 02. NO DISTRESS NOTED. [id number]. ALL SAFETY MEASURES IN PLACE. RENTERIA DRAINING TO GRAVITY. ON TELE AFIB.
[2021-02-19 05:18] LABS: BASOPHILS ABSOLUTE AUTO 0.03 K/mm3 (0.00-0.23); BASOPHILS PERCENT AUTO 0 % (0-2); EOSINOPHILS ABSOLUTE AUTO 0.36 K/mm3 (0.00-0.68); EOSINOPHILS PERCENT AUTO 5 % (0-6); Hematocrit 33.6 % (37.0-53.0); Hemoglobin 10.8 g/dL (13.5-17.5); IMMATURE GRAN ABSOLUTE AUTO 0.01 K/mm3 (0.00-0.10); IMMATURE GRAN PERCENT AUTO 0 % (0-1); LYMPHOCYTES ABSOLUTE AUTO 1.06 K/mm3 (0.84-5.20); LYMPHOCYTES PERCENT AUTO 14 % (21-46); MONOCYTES ABSOLUTE AUTO 0.87 K/mm3 (0.16-1.47); MONOCYTES PERCENT AUTO 11 % (4-13); Mean Corpuscular HGB 28.1 pg (26.0-34.0); Mean Corpuscular HGB Conc 32.1 g/dL (31.5-36.5); Mean Corpuscular Volume 87 fL (80-100); NEUTROPHILS ABSOLUTE AUTO 5.39 K/mm3 (1.96-9.15); NEUTROPHILS PERCENT AUTO 70 % (41-73); Platelet Count 100 K/mm3 (150-400); RDW Coefficient Variation 14.6 % (11.7-14.2); Red Blood Cell Count 3.85 M/mm3 (4.30-5.90); White Blood Cell Count 7.72 K/mm3 (4.00-11.30)
[2021-02-19 05:25] LABS: Mean Platelet Volume 13.4 fL (9.1-12.4)
[2021-02-19 05:38] LABS: Albumin, Blood 2.8 g/dL (3.4-5.0); Albumin/Globulin Ratio 0.5 (0.8-1.8); Bilirubin, Total 0.8 mg/dL (0.1-1.0); Bun/Creatinine Ratio 20.3 (12.0-20.0); Calcium, Blood 8.7 mg/dL (8.5-10.1); Creatinine, Blood 1.33 mg/dL (0.60-1.20); Globulin, Blood 5.2 g/dL (2.2-4.0); Potassium, Blood 3.5 mmol/L (3.5-5.5)
--- NOTE | 2021-02-19 20:14 | NUR ---
SHIFT SUMMARY: NO ACUTE EVENTS TO REPORT THIS SHIFT. PT A&O; CALM AND COOPERATIVE WITH CARE. MEDICALLY STABLE/AWAITING DISCHARGE. REPORT GIVEN TO ONCOMING RN.
== END 2021-02-19 20:03 | disposition home or self-care (01) | DRG 291 ==
LOC: ER 09:22 → MEDS 16:16 → ERHOLD 16:16 → MEDS 19:30 → ENPENDDIS 02-19 15:28 → MEDS 02-19 20:03
PROVIDERS: Emergency Medicine Emergency Medical Services; Physician Assistant; Student in an Organized Health Care Education/Training Program; ADMIT Hospitalist
DX: I11.0 Hypertensive heart disease with heart failure (principal); U07.1 COVID-19; N13.8 Other obstructive and reflux uropathy; N17.9 Acute kidney failure, unspecified; N13.2 Hydronephrosis with renal and ureteral calculous obstruction; Z66 Do not resuscitate; N40.1 Benign prostatic hyperplasia with lower urinary tract symptoms; I50.33 Acute on chronic diastolic (congestive) heart failure; E66.9 Obesity, unspecified; I48.91 Unspecified atrial fibrillation; E11.9 Type 2 diabetes mellitus without complications; I87.2 Venous insufficiency (chronic) (peripheral); K21.9 Gastro-esophageal reflux disease without esophagitis; F32.9 Major depressive disorder, single episode, unspecified; K74.60 Unspecified cirrhosis of liver; I27.20 Pulmonary hypertension, unspecified; D63.8 Anemia in other chronic diseases classified elsewhere; Z87.19 Personal history of other diseases of the digestive system; Z90.49 Acquired absence of other specified parts of digestive tract; Z93.2 Ileostomy status; Z88.1 Allergy status to other antibiotic agents; Z88.5 Allergy status to narcotic agent; Z88.8 Allergy status to other drugs, medicaments and biological substances; Z95.5 Presence of coronary angioplasty implant and graft; Z98.890 Other specified postprocedural states; Z98.41 Cataract extraction status, right eye; Z79.82 Long term (current) use of aspirin; Z79.899 Other long term (current) drug therapy; Z79.84 Long term (current) use of oral hypoglycemic drugs; Z91.041 Radiographic dye allergy status; Z68.33 Body mass index [BMI] 33.0-33.9, adult
CPT/HCPCS: 36415; 51702; 51798; 71045; 74176; 80053; 80162; 81001; 82947; 83036; 83880; 84443; 84484; 85025; 93005; 93010; 93306; 93970; 94640; 96374-59; 96375-59; 99285-25; A9270; J1940; J2405; J7030; U0004

== ENCOUNTER 2021-11-24 08:46 | Emergency (ER) | payer MEDICARE ==
[~2021-11-24] VITALS: Ht 170.2 cm; Wt 93.0 kg
[~2021-11-24 08:46] MED LIST changes: +CARVEDILOL6.25 MG PO; +VIT1CAPS12; +VIT1CAPS12 PO
[2021-11-24 09:22] LABS: BASOPHILS ABSOLUTE AUTO 0.03 K/mm3 (0.00-0.23); BASOPHILS PERCENT AUTO 1 % (0-2); EOSINOPHILS ABSOLUTE AUTO 0.29 K/mm3 (0.00-0.68); EOSINOPHILS PERCENT AUTO 5 % (0-6); Hematocrit 37.7 % (37.0-53.0); Hemoglobin 11.7 g/dL (13.5-17.5); IMMATURE GRAN ABSOLUTE AUTO 0.02 K/mm3 (0.00-0.10); IMMATURE GRAN PERCENT AUTO 0 % (0-1); LYMPHOCYTES ABSOLUTE AUTO 1.18 K/mm3 (0.84-5.20); LYMPHOCYTES PERCENT AUTO 19 % (21-46); MONOCYTES ABSOLUTE AUTO 0.56 K/mm3 (0.16-1.47); MONOCYTES PERCENT AUTO 9 % (4-13); Mean Corpuscular HGB 26.5 pg (26.0-34.0); Mean Corpuscular Volume 86 fL (80-100); NEUTROPHILS ABSOLUTE AUTO 4.01 K/mm3 (1.96-9.15); NEUTROPHILS PERCENT AUTO 66 % (41-73); Platelet Count 85 K/mm3 (150-400); RDW Coefficient Variation 15.2 % (11.7-14.2); RDW Standard Deviation 47.8 fL (35.1-46.3); Red Blood Cell Count 4.41 M/mm3 (4.30-5.90); White Blood Cell Count 6.09 K/mm3 (4.00-11.30)
[2021-11-24 09:35] LABS: Albumin, Blood 3.1 g/dL (3.4-5.0); Albumin/Globulin Ratio 0.5 (0.8-1.8); Bilirubin, Total 0.5 mg/dL (0.1-1.0); Calcium, Blood 8.9 mg/dL (8.5-10.1); Globulin, Blood 5.7 g/dL (2.2-4.0); Potassium, Blood 4.3 mmol/L (3.5-5.5); Total Protein, Blood 8.8 g/dL (6.4-8.2)
[2021-11-24 10:20] LABS: Source, Urine Clean Catch
[2021-11-24 10:25] LABS: Appearance, Urine Clear (Clear); Bilirubin, Urine Neg (Neg); Blood, Urine 4+ (Neg); Color, Urine Yellow (P-Yellow); Glucose Qualitative, Urine Neg (Neg); Ketones, Urine Neg (Neg); Leukocyte Esterase, Urine Neg (Neg); Nitrite, Urine Neg (Neg); Protein, Urine 2+ (Neg); Specific Gravity, Urine 1.025 (1.003-1.022); Urobilinogen, Urine NORM (Normal)
[2021-11-24 10:41] LABS: Bacteria Few /hpf; Granular Casts 0-2 /lpf (0); Mucus Light (0-Heavy); Red Blood Cells, Urine 25-50 /hpf (0-2); Squamous Epithelial Cells Rare /hpf (Few); White Blood Cells, Urine 0-2 /hpf (0-5)
[2021-11-24] MEDS ORDERED: ESCI10 PO (11:26)
[2021-11-24] MEDS ORDERED: FINA5 PO (11:27)
[2021-11-24] MEDS ORDERED: MAGN84 PO (11:32)
[2021-11-24] MEDS ORDERED: VIT1CAPS12 (11:33)
[2021-11-24] MEDS ORDERED: LIVALO2 MG PO (11:34)
[2021-11-24 11:37] LABS: Influenza A, PCR NEGATIVE (NEGATIVE); Influenza B, PCR NEGATIVE (NEGATIVE); Resp Syncytial Virus, PCR NEGATIVE (NEGATIVE); SARS-Cov-2 (COVID-19) PCR, MMC NEGATIVE (NEGATIVE)
[2021-11-24] MEDS ORDERED: AZIT250 PO (11:56)
[2021-11-24] MEDS ORDERED: MECL25 PO (11:56)
== END 2021-11-24 12:22 | disposition home or self-care (01) ==
LOC: ER 08:46
PROVIDERS: Emergency Medicine
DX: R42 Dizziness and giddiness (principal); I48.91 Unspecified atrial fibrillation; E86.0 Dehydration; D64.9 Anemia, unspecified; D69.6 Thrombocytopenia, unspecified; R51.9 Headache, unspecified; W18.30XA Fall on same level, unspecified, initial encounter; E88.09 Other disorders of plasma-protein metabolism, not elsewhere classified; I11.0 Hypertensive heart disease with heart failure; I50.33 Acute on chronic diastolic (congestive) heart failure; E11.9 Type 2 diabetes mellitus without complications; Z93.2 Ileostomy status; Z88.1 Allergy status to other antibiotic agents; Z91.041 Radiographic dye allergy status; Z88.5 Allergy status to narcotic agent; Z88.8 Allergy status to other drugs, medicaments and biological substances; Z91.048 Other nonmedicinal substance allergy status; Z79.899 Other long term (current) drug therapy; Z20.822 Contact with and (suspected) exposure to COVID-19
CPT/HCPCS: 0241U; 71045; 80053; 81001; 84484; 85025; 93005; 93010; 99285-25; J7030

== ENCOUNTER 2022-01-26 19:30 | Emergency (ER) | payer MEDICARE ==
[~2022-01-26] VITALS: Ht 170.2 cm; Wt 96.6 kg
[~2022-01-26 19:30] MED LIST changes: +AZIT250 PO; +FINA5 PO; +LIVALO2 MG PO; +MAGN84 PO; +MECL25 PO
[2022-01-26 21:03] LABS: BASOPHILS ABSOLUTE AUTO 0.04 K/mm3 (0.00-0.23); BASOPHILS PERCENT AUTO 1 % (0-2); EOSINOPHILS ABSOLUTE AUTO 0.18 K/mm3 (0.00-0.68); EOSINOPHILS PERCENT AUTO 2 % (0-6); Hematocrit 32.8 % (37.0-53.0); IMMATURE GRAN ABSOLUTE AUTO 0.02 K/mm3 (0.00-0.10); IMMATURE GRAN PERCENT AUTO 0 % (0-1); LYMPHOCYTES ABSOLUTE AUTO 0.77 K/mm3 (0.84-5.20); LYMPHOCYTES PERCENT AUTO 9 % (21-46); MONOCYTES ABSOLUTE AUTO 0.98 K/mm3 (0.16-1.47); MONOCYTES PERCENT AUTO 12 % (4-13); Mean Corpuscular HGB 26.2 pg (26.0-34.0); Mean Corpuscular HGB Conc 30.5 g/dL (31.5-36.5); Mean Corpuscular Volume 86 fL (80-100); Mean Platelet Volume 12.7 fL (9.1-12.4); NEUTROPHILS PERCENT AUTO 77 % (41-73); Platelet Count 136 K/mm3 (150-400); RDW Coefficient Variation 15.8 % (11.7-14.2); RDW Standard Deviation 49.8 fL (35.1-46.3); Red Blood Cell Count 3.81 M/mm3 (4.30-5.90); White Blood Cell Count 8.49 K/mm3 (4.00-11.30)
[2022-01-26 21:26] LABS: Albumin, Blood 3.3 g/dL (3.4-5.0); Albumin/Globulin Ratio 0.6 (0.8-1.8); Bilirubin, Total 0.5 mg/dL (0.1-1.0); Bun/Creatinine Ratio 27.6 (12.0-20.0); Calcium, Blood 9.1 mg/dL (8.5-10.1); Creatinine, Blood 1.27 mg/dL (0.60-1.20); Globulin, Blood 5.8 g/dL (2.2-4.0); Potassium, Blood 4.3 mmol/L (3.5-5.5); Total Protein, Blood 9.1 g/dL (6.4-8.2)
[2022-01-26 23:55] LABS: Magnesium, Blood 1.6 mg/dL (1.6-2.4)
== END 2022-01-27 01:52 | disposition home or self-care (01) ==
LOC: ER 19:30
PROVIDERS: Student in an Organized Health Care Education/Training Program
DX: R60.0 Localized edema (principal); I11.0 Hypertensive heart disease with heart failure; I50.9 Heart failure, unspecified; E11.9 Type 2 diabetes mellitus without complications; I48.91 Unspecified atrial fibrillation; Z95.5 Presence of coronary angioplasty implant and graft; Z79.899 Other long term (current) drug therapy; Z79.82 Long term (current) use of aspirin; Z79.84 Long term (current) use of oral hypoglycemic drugs; Z88.5 Allergy status to narcotic agent; Z88.8 Allergy status to other drugs, medicaments and biological substances; Z88.1 Allergy status to other antibiotic agents; Z91.041 Radiographic dye allergy status
CPT/HCPCS: 36415; 71045; 80053; 83605; 83735; 83880; 84484; 85025; 93005; 93010; 96374; 99284-25

== ENCOUNTER → 2022-01-27 | Outpatient (CLI) | payer MEDICARE | END | disposition home or self-care (01) | LOC: LAB SHORT 14:28 → LAB 14:28 | DX: I87.2 Venous insufficiency (chronic) (peripheral) (principal) | CPT/HCPCS: 87070; 87205 ==

== ENCOUNTER 2022-03-30 11:14 | Emergency (ER) | payer MEDICARE ==
[~2022-03-30] VITALS: Ht 170.2 cm; Wt 93.0 kg
[2022-03-30 12:44] LABS: BASOPHILS ABSOLUTE AUTO 0.03 K/mm3 (0.00-0.23); BASOPHILS PERCENT AUTO 1 % (0-2); EOSINOPHILS ABSOLUTE AUTO 0.15 K/mm3 (0.00-0.68); EOSINOPHILS PERCENT AUTO 2 % (0-6); Hematocrit 34.3 % (37.0-53.0); Hemoglobin 10.1 g/dL (13.5-17.5); IMMATURE GRAN ABSOLUTE AUTO 0.01 K/mm3 (0.00-0.10); IMMATURE GRAN PERCENT AUTO 0 % (0-1); LYMPHOCYTES ABSOLUTE AUTO 0.58 K/mm3 (0.84-5.20); LYMPHOCYTES PERCENT AUTO 9 % (21-46); MONOCYTES ABSOLUTE AUTO 0.64 K/mm3 (0.16-1.47); MONOCYTES PERCENT AUTO 10 % (4-13); Mean Corpuscular HGB 24.8 pg (26.0-34.0); Mean Corpuscular HGB Conc 29.4 g/dL (31.5-36.5); Mean Corpuscular Volume 84 fL (80-100); Mean Platelet Volume 12.4 fL (9.1-12.4); NEUTROPHILS ABSOLUTE AUTO 4.92 K/mm3 (1.96-9.15); NEUTROPHILS PERCENT AUTO 78 % (41-73); Platelet Count 125 K/mm3 (150-400); RDW Coefficient Variation 16.1 % (11.7-14.2); RDW Standard Deviation 49.4 fL (35.1-46.3); Red Blood Cell Count 4.07 M/mm3 (4.30-5.90); White Blood Cell Count 6.33 K/mm3 (4.00-11.30)
[2022-03-30 12:49] LABS: Albumin, Blood 3.3 g/dL (3.4-5.0); Albumin/Globulin Ratio 0.6 (0.8-1.8); Bilirubin, Total 0.4 mg/dL (0.1-1.0); Bun/Creatinine Ratio 23.8 (12.0-20.0); Calcium, Blood 9.3 mg/dL (8.5-10.1); Creatinine, Blood 1.22 mg/dL (0.60-1.20); Potassium, Blood 4.1 mmol/L (3.5-5.5); Total Protein, Blood 9.3 g/dL (6.4-8.2)
== END 2022-03-30 16:17 | disposition home or self-care (01) ==
LOC: ER 11:14
PROVIDERS: Physician Assistant
DX: K94.11 Enterostomy hemorrhage (principal); I10 Essential (primary) hypertension; E11.9 Type 2 diabetes mellitus without complications; D64.9 Anemia, unspecified; Z79.84 Long term (current) use of oral hypoglycemic drugs; Z79.82 Long term (current) use of aspirin; Z79.899 Other long term (current) drug therapy
CPT/HCPCS: 36415; 80053; 85025; 86850; 86900; 86901; 93005; 93010; A9270

== ENCOUNTER → 2022-05-03 | Outpatient (CLI) | payer MEDICARE | END | disposition home or self-care (01) | DX: L08.9 Local infection of the skin and subcutaneous tissue, unspecified (principal); I87.2 Venous insufficiency (chronic) (peripheral); L89.159 Pressure ulcer of sacral region, unspecified stage; L89.329 Pressure ulcer of left buttock, unspecified stage; L89.319 Pressure ulcer of right buttock, unspecified stage; E11.620 Type 2 diabetes mellitus with diabetic dermatitis; R60.0 Localized edema; Z71.3 Dietary counseling and surveillance ==

== ENCOUNTER → 2022-05-17 | Outpatient (CLI) | payer MEDICARE | END | disposition home or self-care (01) | LOC: LAB 17:00 → LAB SHORT 17:00 | DX: L08.9 Local infection of the skin and subcutaneous tissue, unspecified (principal); I87.2 Venous insufficiency (chronic) (peripheral) | CPT/HCPCS: 87070; 87205 ==

== ENCOUNTER 2022-05-20 20:52 | Emergency (ER) | payer MEDICARE ==
[~2022-05-20] VITALS: Ht 170.2 cm; Wt 94.8 kg
[2022-05-20 21:54] LABS: BASOPHILS ABSOLUTE AUTO 0.02 K/mm3 (0.00-0.23); BASOPHILS PERCENT AUTO 0 % (0-2); EOSINOPHILS PERCENT AUTO 1 % (0-6); Hematocrit 28.3 % (37.0-53.0); Hemoglobin 8.4 g/dL (13.5-17.5); IMMATURE GRAN ABSOLUTE AUTO 0.05 K/mm3 (0.00-0.10); IMMATURE GRAN PERCENT AUTO 1 % (0-1); LYMPHOCYTES ABSOLUTE AUTO 0.37 K/mm3 (0.84-5.20); LYMPHOCYTES PERCENT AUTO 5 % (21-46); MONOCYTES PERCENT AUTO 10 % (4-13); Mean Corpuscular HGB 24.5 pg (26.0-34.0); Mean Corpuscular HGB Conc 29.7 g/dL (31.5-36.5); Mean Corpuscular Volume 83 fL (80-100); Mean Platelet Volume 12.7 fL (9.1-12.4); NEUTROPHILS ABSOLUTE AUTO 5.93 K/mm3 (1.96-9.15); NEUTROPHILS PERCENT AUTO 83 % (41-73); Platelet Count 120 K/mm3 (150-400); Red Blood Cell Count 3.43 M/mm3 (4.30-5.90); White Blood Cell Count 7.17 K/mm3 (4.00-11.30)
[2022-05-20 22:09] LABS: Magnesium, Blood 2.2 mg/dL (1.6-2.4)
[2022-05-20 22:13] LABS: Albumin, Blood 3.1 g/dL (3.4-5.0); Albumin/Globulin Ratio 0.6 (0.8-1.8); Bilirubin, Total 0.3 mg/dL (0.1-1.0); Bun/Creatinine Ratio 36.7 (12.0-20.0); Calcium, Blood 8.8 mg/dL (8.5-10.1); Creatinine, Blood 1.88 mg/dL (0.60-1.20); Globulin, Blood 5.6 g/dL (2.2-4.0); Potassium, Blood 5.5 mmol/L (3.5-5.5); Thyroid Stimulating Hormone 2.52 uIU/mL (0.360-4.800); Total Protein, Blood 8.7 g/dL (6.4-8.2)
== END 2022-05-21 10:10 | disposition home or self-care (01) ==
LOC: ER 20:52
PROVIDERS: Student in an Organized Health Care Education/Training Program
DX: S01.01XA Laceration without foreign body of scalp, initial encounter (principal); I48.91 Unspecified atrial fibrillation; R53.1 Weakness; W18.30XA Fall on same level, unspecified, initial encounter; Z88.1 Allergy status to other antibiotic agents; Z88.8 Allergy status to other drugs, medicaments and biological substances; Z88.5 Allergy status to narcotic agent; Z79.84 Long term (current) use of oral hypoglycemic drugs; Z79.899 Other long term (current) drug therapy; Z79.82 Long term (current) use of aspirin; I10 Essential (primary) hypertension; E11.9 Type 2 diabetes mellitus without complications
CPT/HCPCS: 36415; 70450; 71045; 72125; 80053; 83735; 84443; 84484; 85025; 90714; 93005; 93010; J2270; J2405; J3010; J7030